=== PATIENT | female | born 1995 | race Caucasian/White ===

== ENCOUNTER 2020-10-01 20:39 | Emergency (ER) | payer OTHER, SELFPAY ==
[2020-10-01 20:43] VITALS: BP 114/58; PULSE 86; RESP 18; TEMP 36.6; O2SAT 96
--- NOTE | 2020-10-01 21:33 | ED.GENADULT ---
HPI - General Adult General Chief complaint: Unspecified Stated complaint: cat scratch eyelid, LLQ pain Time Seen by Provider: 10/01/20 21:07 Source: patient Mode of arrival: ambulatory Limitations: no limitations History of Present Illness HPI narrative: Patient 25-year-old female complaining of being scratched by her cat on the her right eyelid earlier today. Patient also complaining of left lower quadrant pain that started approximately 1 week ago, mild, nonradiating intermittent currently denies any pain. Patient states that she is also been having diarrhea for the past few days, described as loose watery, nonbloody. Denies any urinary symptoms, fever or chills. Related Data Home Medications Medication Instructions Recorded Confirmed No Home Medications 10/01/20 10/01/20 Allergies Allergy/AdvReac Type Severity Reaction Status Date / Time No Known Allergies Allergy Verified 10/01/20 20:46 Review of Systems Review of Systems: All systems reviewed & are unremarkable except as noted in HPI and below Constitutional: Constitutional: Denies body ache(s), Denies chills, Denies excessive sweating, Denies fatigue, Denies fever(s), Denies headache(s), Denies lethargy, Denies malaise, Denies weakness and Denies weight loss Eyes: Eyes: Denies blurry vision, Denies change in vision and Denies loss of vision ENT: Denies dizziness, Denies ear discharge, Denies headache(s), Denies lip swelling, Denies epistaxis, Denies nasal congestion, Denies neck pain, Denies throat swelling and Denies tongue swelling Cardiovascular: Cardiovascular: Denies chest pain, Denies chest pain at rest, Denies chest pain with activity, Denies diaphoresis, Denies rapid heart rate, Denies edema, Denies irregular heart rhythm, Denies lightheadedness, Denies palpitations, Denies dyspnea and Denies dyspnea on exertion Respiratory: Respiratory: Denies chest congestion, Denies cough, Denies hemoptysis, Denies dyspnea and Denies dyspnea on exertion Gastrointestinal: Gastrointestinal: Denies melena, Denies hematochezia, Denies diarrhea, Denies nausea, Denies vomiting and Denies hematemesis Musculoskeletal: Musculoskeletal: Denies abnormal gait, Denies deformity, Denies joint swelling, Denies limited range of motion, Denies neck pain and Denies numbness Neurologic: Denies Abnormal speech present, Denies abnormal gait, Denies confusion, Denies dizziness, Denies headache(s), Denies focal weakness, Denies loss of vision, Denies numbness, Denies Other visual disturbances, Denies Sensory deficit (Neuro) and Denies weakness Psychiatric: Psychiatric: Denies confusion, Denies depression, Denies auditory hallucinations, Denies homicidal ideation and Denies suicidal ideation Endocrine: Endocrine: Denies cold intolerance, Denies excessive sweating, Denies fatigue, Denies heat intolerance and Denies palpitations Hematologic/Lymphatic: Hematologic/Lymphatic: Denies easy bleeding and Denies easy bruising Allergic/Immunologic: Allergic/Immunologic: Denies lip swelling, Denies throat swelling and Denies tongue swelling PMF Social History Social History Gender identity (if verbalized by the patient): Female Sexual Orientation (if Verbalized by the Patient): Straight or Heterosexual Exam Const: General: cooperative, healthy appearing, comfortable, no acute distress, well developed, alert and awake; No confusion Orientation/consciousness: oriented to person, oriented to place, oriented to time, patient oriented x3 and No confusion Limitations: no limitations HENMT: Head: normal to inspection, normocephalic and atraumatic Ears: hearing grossly normal bilaterally, TM normal on the right and TM normal on the left General nose exam: Normal external nose present, Normal nares present and No nasal discharge present Mouth: Yes Normal oral and palatal mucosa present, Yes lip normal, Yes tongue normal and Yes oropharynx normal Throat: posterior oropharynx normal, tonsils normal
[2020-10-01 21:34] LABS: Bacteria Urine Trace /hpf; Mucus Urine Heavy /lpf; RBC Urine 21-50 /hpf (0-2); Squamous Epithelial Cell Urine Many /hpf (Few); WBC Urine 0-3 /hpf
[2020-10-01 21:38] LABS: Add Urine Microscopic? YES; Appearance Urine Clear (Clear); Bilirubin Urine Negative (Negative); Blood Urine 3+ (Negative); Color Urine Yellow (Yellow); Glucose Urine UA Negative (Negative); Ketones Urine Trace mg/dL (Negative); Leukocyte Esterase Ur Negative LEU/UL (Negative); Nitrate Urine Negative (Negative); Protein Urine 1+ mg/dL (Negative); Specific Grav Ur 1.027 (1.001-1.035); Urobilinogen Urine Negative mg/dL (<2.0)
[2020-10-01 22:28] VITALS: BP 108/67; PULSE 78; RESP 16; TEMP 36.8; O2SAT 100
[2020-10-01 22:44] LABS: Basophils Percent Auto 0.5 % (0.2-1.2); Eosinophils Percent Auto 0.1 % (0-4.4); Hematocrit 46.1 % (37.0-47.0); Hemoglobin 15.6 g/dL (12.0-15.0); Immature Granulocyte Absolute 0.02 K/mm3 (0.00-0.031); Immature Granulocyte Percent A 0.3 % (0-0.5); Lymphocytes Absolute Auto 1.97 K/mm3 (0.9-3.2); Lymphocytes Percent Auto 25.5 % (18.3-44.2); Mean Corpuscular HGB Conc 33.8 g/dl (32-36); Mean Corpuscular Volume 91.7 fl (80-100); Mean Platelet Volume 9.7 fl (7.4-10.4); Monocytes Absolute Auto 0.7 K/mm3 (0.1-0.6); Monocytes Percent Auto 8.8 % (2.6-8.5); Neutrophils Percent Auto 64.8 % (45.5-73.1); Platelet Count Result 272 k/mm3 (150-375); Red Blood Count 5.03 M/mm3 (4.2-5.4); Red Cell Distribution Width 11.9 % (11.5-14.5); White Blood Count 7.7 K/mm3 (4.5-10.0)
[2020-10-01 22:56] LABS: Alanine Aminotransferase 13 U/L (4-35); Albumin Level 4.5 g/dL (3.5-5.1); Alkaline Phosphatase 39 U/L (38-126); Anion Gap 9 mmol/L (8-16); Aspartate Amino Transferase 26 U/L (14-36); Bilirubin,Total 0.6 mg/dL (0.2-1.3); Blood Urea Nitrogen 14 mg/dL (7-17); Calcium 9.3 mg/dL (8.4-10.2); Carbon Dioxide 32 mmol/L (22-30); Chloride 100 mmol/L (98-107); Estimated CRCL calculation 71 ml/min; Estimated Glomerular Filt Rate > 60; Glucose 67 mg/dL (65-105); Potassium 3.4 mmol/L (3.4-5.0); Sodium 141 mmol/L (137-145)
== END 2020-10-01 22:28 | disposition home or self-care (01) ==
PROVIDERS: Emergency Provider Emergency Medicine
DX: S00.211A Abrasion of right eyelid and periocular area, initial encounter (principal); N94.6 Dysmenorrhea, unspecified; W55.03XA Scratched by cat, initial encounter
CPT/HCPCS: 36415; 80053; 81001; 81025; 85025; 99283